=== PATIENT | female | born 1955 | race Caucasian/White ===

== ENCOUNTER 2018-06-19 10:17 | Observation (INO) | payer BC, SELFPAY ==
[2018-06-19] VITALS (15 sets, daily range): BP systolic 119–150; BP diastolic 64–88; PULSE 55–75; RESP 15–29; TEMP 36.5–37.1; O2SAT 95–100; BMI 32.2; BMI 32.3
--- NOTE | 2018-06-19 10:30 | EKG12_ITS ---
Test Reason : REPEAT Blood Pressure : / mmHG Vent. Rate : 071 BPM Atrial Rate : 071 BPM P-R Int : 158 ms QRS Dur : 084 ms QT Int : 410 ms P-R-T Axes : 046 -22 049 degrees QTc Int : 445 ms Normal sinus rhythm Normal ECG Confirmed by ELEUTERIO ZAVALA ([id number]), general expeditor MONICA GOMEZ ([id number] on 06/26/2018 2:16:27 PM Referred By: LUI Confirmed By:ELEUTERIO ZAVALA
--- NOTE | 2018-06-19 10:47 | EKG12_ITS ---
Test Reason : ADMIT W/C.P. Blood Pressure : / mmHG Vent. Rate : 058 BPM Atrial Rate : 058 BPM P-R Int : 154 ms QRS Dur : 084 ms QT Int : 444 ms P-R-T Axes : 026 -24 038 degrees QTc Int : 435 ms Sinus bradycardia Low voltage QRS Inferior infarct , age undetermined Abnormal ECG When compared with ECG of 19-JUN-2018 10:38, MANUAL COMPARISON REQUIRED, DATA IS UNCONFIRMED Confirmed by ELEUTERIO ZAVALA ([id number]), pictures editor MONICA GOMEZ ([id number]) on 06/26/2018 3:14:14 PM Referred By: DOMINGUEZ Confirmed By:ELEUTERIO ZAVALA
[2018-06-19 10:49] LABS: Absolute Lymphocyte Count 1.31 X10^3/ul (0.83-4.51); Absolute Neutrophil Count 1.8 X10^3/uL (2.0-7.7); Basophil# 0.02 X10^3/uL; Basophil% 0.5 % (0-1); Eosinophil# 0.31 X10^3/uL; Eosinophils% 7.8 % (0-5); Hematocrit 40.3 % (37-47); Hemoglobin 13.9 g/dl (12.0-15.0); Lymphocyte # 1.31 X10^3/ul (4.0); Lymphocyte % 32.8 % (19-41); Mean Corp Hgb Conc 34.5 g/gl (32-36); Mean Corpuscular Hgb 31.4 pg (27.0-32.0); Mean Platelet Vol. 9.6 fl (6.2-12.0); Monocyte# 0.51 X10^3/uL; Monocyte% 12.8 % (0-10); Neutrophil # 1.83 X10^3/uL (2.7-7.7); Neutrophil % 45.8 % (47-70); POSITIVE COUNT NO; POSITIVE DIFFERENTIAL NO; POSITIVE MORPHOLOGY NO; Platelet Count 185 K/mm3 (150-450); RBC Distribution Width CV 13.2 % (11.6-14.6); RBC Distribution Width SD 43.2 fl (35.1-43.9); Red Blood Count 4.43 M/mm3 (4.2-5.4)
[2018-06-19 11:02] LABS: AST(SGOT) 29 U/L (15-37); Alanine Aminotransfer ALT/SGPT 33 U/L (13-56); Albumin, Serum 3.5 g/dL (3.2-5.0); Alkaline Phosphatase 83 U/L (45-117); Anion Gap 15 (5-15); BUN 20 mg/dL (7-18); BUN/Creat Ratio 16.9 RATIO (10-20); Bilirubin, Direct 0.16 mg/dL (0.00-0.30); Calcium,Total 9.1 mg/dL (8.5-10.1); Chloride 105 mmol/L (98-107); Creatinine, Serum 1.18 mg/dL (0.55-1.02); EST Glomerular Filtration Rate 49 mL/min (>60); Est Glom Filt Rate - Afr Amer 59 mL/min (>60); Estimated Creatinine Clearance 39.32 ml/min; Globulin 3.9 g/dL (2.2-4.2); Glucose 102 mg/dL (74-106); Lipase 156 U/L (73-393); Potassium 3.3 mmol/L (3.5-5.1); Protein, Total 7.4 g/dL (6.4-8.2); Sodium Level 145 mmol/L (136-145)
[2018-06-19] MEDS: 0.9% Normal Saline 1,000 ML 150 ML IV (11:31)
[2018-06-19] MEDS: Ondansetron 4 MG/2 ML Vial IV (11:31)
[2018-06-19] MEDS: Morphine 4 MG/ML Syringe IV (11:31)
--- NOTE | 2018-06-19 11:47 | ED.VISSUMM ---
- ER Visit Summary Date of Service: 06/19/18 Chief Complaint: [Chest pain History of Present Illness: The patient is a 63 F [presents to the emergency department complaint of chest pain that started yesterday. Patient states the pain is been continuous. She describes it as left-sided. Patient had some numbness in her left arm. Patient feels somewhat short of breath with it. 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 Patient currently on Xarelto but states that her dose was lowered for a time to 10 mg and she had been on 20 mg. Patient denies recent travel or surgery. She has no coronary artery disease history otherwise. Patient does have a history of hypertension, high cholesterol, asthma, and PE.] Physical Examination: HEENT-PERRLA, EOMI. Cranial nerves II through XII grossly intact. TMs clear. Mucous membranes moist. No adenopathy. Cardiovascular-regular rate and rhythm without murmur or ectopy Lungs-clear to auscultation, chest wall stable without crepitus or subcu emphysema Abdomen-normoactive bowel sounds, soft, nontender, no rebound or rigidity, no peritoneal signs. Extremities-intact ?4, normal range of motion, normal pulses, atraumatic [] Test Results: [EKG obtained on arrival showed a sinus rhythm with a ventricular rate of 67 bpm with no acute significant ST changes noted. CBC with differential showing a 4.0, Hemoccult 13.9, hematocrit 40, platelets 185. Chemistries unremarkable. LFTs and lipase were normal. Troponin was less than 0.015. CTA of the chest was read by radiology as normal.] Emergency Department Course and Treatment: [Patient was given morphine and Zofran as well as nitroglycerin. She seemed to have some slight improvement with the nitroglycerin. Patient had an episode of pain while in the department that she describes as to hand squeezing her chest and the pain radiated into her jaw. Repeat EKG was unchanged from first EKG.] Treatment Plan: [Admit] Disposition: Admit] Impression: [Chest pain-rule out acute coronary syndrome] This note was generated with [employer] dictation software. It may contain incorrect words, spelling, and punctuation that were not noted in review of the chart prior to signing ED Disposition - Plan for ED Patient: Chief Complaint: Chest Pain Referrals: Care Physician,No Primary [Primary Care Provider] -
[2018-06-19] MEDS: Mag Hydrox/Al Hydrox/Simeth 30 ML UDC PO (12:04)
--- NOTE | 2018-06-19 12:16 | PCM.HP.STD ---
Problem List (1) Hyperlipidemia Status: Chronic (2) History of DVT (deep vein thrombosis) Status: Chronic (3) History of saddle pulmonary embolism Status: Chronic (4) Hypertension Status: Chronic History of Present Illness Date of Admission: 06/19/18 Chief Complaint: Chest pain. The patient is a 63 year old F with past medical history as mentioned above presented to the emergency department because of chest pain that started yesterday. Yesterday evening, she was sitting reading a book and she started having retrosternal chest pain, squeezing type pain, 9 out of 10 in severity, radiates to her neck, associated with mild shortness of breath and sweating and she was dizzy and without aggravating or relieving factors. The pain lasted around 1 hour and then started to ease up. She was hesitant to come to ED yesterday. Today, she started having that exact same pain and she decided to come to the emergency department. In the ED, her vital signs were stable but she was a little bit tachypneic probably due to anxiety. Her routine blood work is remarkable for potassium of 3.3, BUN of 20 and creatinine 1.18, otherwise normal. LFT and lipase were normal. Troponin was negative. EKG revealed normal sinus rhythm, normal WI interval, normal QRS and no evidence of acute ischemic changes or cardiac arrhythmias. Because of chest pain and history of PE, CTA chest done and revealed no evidence of PE or dissection. She is being admitted for chest pain for evaluation as well as hypokalemia and mild dehydration. Past Medical History Past Medical History (Chronic Problems): Chronic Problems Hyperlipidemia (Chronic) History of DVT (deep vein thrombosis) (Chronic) History of saddle pulmonary embolism (Chronic) Hypertension (Chronic) Allergies Latex, Natural Rubber Allergy (Verified 06/19/18 10:17) Rash Home Medications: Ambulatory Orders Medication Instructions Recorded Fluoxetine HCl 10 mg PO DAILY 06/19/18 Lisinopril/Hydrochlorothiazide 1 tablet PO DAILY 06/19/18 [Zestoretic 1012.5 Tablet] Pantoprazole Sodium [Protonix] 40 mg PO DAILY 06/19/18 Rivaroxaban [Xarelto] 20 mg PO DAILY 06/19/18 Surgical History: total knee arthroplasty Psychiatric History: Depression 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 Denies: Heaviness, Palpitations, Syncope Respiratory: Reports: Shortness of Breath. Denies: Cough, Hemoptysis, Pleuritic Pain, Sputum production, Wheezing Gastrointestinal: Denies: Abdominal Pain, Constipation, Diarrhea, Vomiting Genitourinary: Denies: Dysuria, Frequency, Hematuria Musculoskeletal: Denies: Arm Pain, Back Pain, Foot Pain Skin: Denies: Dryness, Rash Neurological: Denies: Balance problems, Double vision, Change in Speech, Slurred speech, Headaches, Incoordination, Numbness Psychiatric: Reports: Depression. Denies: Anxiety Endocrine: Denies: Change in Body Habitus, Polydipsia VTE Information - Inpt Only VTE Present on Admission: No VTE Mechan Device Prophylaxis: None VTE Pharm Prophylaxis ordered?: No - Physical Exam General: Alert, Oriented x3, Cooperative, - - Anxious. HEENT: Atraumatic, PERRLA, EOMI Oral: Moist Mucosa, No Gingival or Mucosal Lesions/ Ulcerations Neck: Supple, No JVD, Negative Carotid Bruits, Trachea Midline, Thyroid Normal Size and Texture Lungs: Clear to auscultation, No rhonchi, No wheeze, No rales, Diminished Cardiovascular: Regular rate, Regular Rhythm, Normal S1, Normal S2, No murmurs, PMI Normal Abdomen: Bowel Sounds Present, Soft, Non Tender, Non-Distended, No Hepato-splenomegaly Extremities: No clubbing, No cyanosis, No edema Skin: No rashes, No breakdown Lymphatic: No Cervical, Supraclavicular, or Inguinal Adenopathy Neurological: Cranial nerves II-XII grossly intact, Motor Exam 5/5 strength throughout Psych/Mental Status: Normal Affect, Appropriate, Alert and oriented to time, place, person, mood and affect Vital Signs Temp Pulse Resp BP Pulse Ox 98.1 F 61 25 H 132/67 H 98 06/19/18 10:18 06/19/18 11:56 06/19/18 11:56 06/19/18 11:56 06/19/18 11:56 Oxygen Flow Rate (L/min) 2 Oxygen Delivery Method Nasal Cannula Weight: 182 lb Body Mass Index (BMI) 32.2 Laboratory Tests Past 24 Hrs 06/19/18 06/19/18 10:20 10:20 WBC 4.0 L RBC 4.43 Hgb 13.9 Hct 40.3 MCV 91.0 MCH 31.4 MCHC 34.5 RDW 13.2 RDW Differential 43.2 Plt Count 185 MPV 9.6 Immature Gran % (Auto) 0.300 Neut % (Auto) 45.8 L Lymph % (Auto) 32.8 [place] % (Auto) 12.8 H Eos % (Auto) 7.8 H Baso % (Auto) 0.5 Absolute Neuts (auto) 1.8 L Absolute Lymphs (auto) 1.31 Total Counted Not Reportable Sodium 145 Potassium 3.3 L Chloride 105 Carbon Dioxide 25.0 Anion Gap 15 BUN 20 H Creatinine 1.18 H Estim Creat Clear Calc 39.32 Est GFR (MDRD) Af Amer 59 L Est GFR (MDRD) Non-Af 49 L BUN/Creatinine Ratio 16.9 Glucose 102 Calcium 9.1 Total Bilirubin 0.70 Direct Bilirubin 0.16 AST 29 ALT 33 Alkaline Phosphatase 83 Troponin I < 0.015 Total Protein 7.4 Albumin 3.5 Globulin 3.9 Lipase 156 Clinical Impression(s) from Imaging Studies Chest CTA 06/19/18 10:30 IMPRESSION: Normal CTA chest examination, without a demonstrated pulmonary embolism or arterial dissection. Electronically Signed: Benedicto Manzo MD at 11:37 EDT Tel [phone], Service support , Assessment/Plan This is a 63 years old female patient presented to the emergency department because of chest pain and she is being admitted for evaluation. #1 chest pain: Risk factors are age, history of hypertension and hyperlipidemia. Initial EKG revealed no acute ischemic changes. Troponin is negative. CTA chest showed no acute PE or dissection. Vital signs are stable. Plan: Admit to PCU for observation, cardiac monitoring, serial cardiac enzymes, repeat EKG tomorrow morning, IV fluids, IV antiemetics, IV morphine as needed for pain, nuclear stress test tomorrow morning if cardiac enzymes are negative. #2 mild dehydration/hypokalemia: Could be due to diuretics. Patient has been on HCTZ. Plan: IV fluids, p.o. K Dur, input output chart, repeat BMP tomorrow morning. #3 hypertension: Blood pressure stable, continue Zestoretic. #4 hyperlipidemia: She is not on statins. #5 history of saddle PE/history of DVT: CTA chest without PE or dissection. Plan to continue Xarelto. #6 DVT prophylaxis: Continue Xarelto. This note was generated with [employer] dictation software. It may contain incorrect words, spelling, and punctuation that were not noted in checking the note before signing. Code Visit OBSV E&M: 99587 Initial observation care L3
[2018-06-19] MEDS: LORazepam 0.5 MG Tablet PO (12:20)
[2018-06-19] MEDS: 0.9% Normal Saline 1,000 ML 75 ML IV (12:48)
--- NOTE | 2018-06-19 12:49 | EKG12_ITS ---
Test Reason : CP Blood Pressure : / mmHG Vent. Rate : 067 BPM Atrial Rate : 067 BPM P-R Int : 148 ms QRS Dur : 082 ms QT Int : 412 ms P-R-T Axes : 034 -34 046 degrees QTc Int : 435 ms Normal sinus rhythm Left axis deviation Nonspecific ST abnormality Abnormal ECG Confirmed by ELEUTERIO ZAVALA ([id number]), society editor MONICA GOMEZ ([id number]) on 06/26/2018 2:15:57 PM Referred By: Confirmed By:ELEUTERIO ZAVALA
[2018-06-19] MEDS: 0.9% NaCl Peripheral Flush Adult/Peds IV (20:20)
[2018-06-20] VITALS (7 sets, daily range): BP systolic 111–131; BP diastolic 69–79; PULSE 63–86; RESP 15–18; TEMP 36.5–37.3; O2SAT 95–98
[2018-06-20] MEDS: Lisinopril 10 MG Tablet PO (05:18)
[2018-06-20] MEDS: Aspirin E.C. 81 MG Tablet PO (05:19)
[2018-06-20] MEDS: 0.9% NaCl Peripheral Flush Adult/Peds IV (05:19)
--- NOTE | 2018-06-20 05:55 | EKG12_ITS ---
Test Reason : AM EKF Blood Pressure : / mmHG Vent. Rate : 058 BPM Atrial Rate : 058 BPM P-R Int : 154 ms QRS Dur : 084 ms QT Int : 424 ms P-R-T Axes : 056 049 060 degrees QTc Int : 416 ms Sinus bradycardia Otherwise normal ECG When compared with ECG of 19-JUN-2018 14:37, MANUAL COMPARISON REQUIRED, DATA IS UNCONFIRMED Confirmed by ELEUTERIO ZAVALA ([id number]), book or script editor MONICA GOMEZ ([id number]) on 06/26/2018 3:15:57 PM Referred By: DOMINGUEZ Confirmed By:ELEUTERIO ZAVALA
[2018-06-20 06:48] LABS: Absolute Lymphocyte Count 1.01 X10^3/ul (0.83-4.51); Absolute Neutrophil Count 1.6 X10^3/uL (2.0-7.7); Basophil# 0.04 X10^3/uL; Basophil% 1.2 % (0-1); Eosinophil# 0.42 X10^3/uL; Eosinophils% 12.2 % (0-5); Hematocrit 37.3 % (37-47); Hemoglobin 12.3 g/dl (12.0-15.0); Lymphocyte # 1.01 X10^3/ul (4.0); Lymphocyte % 29.4 % (19-41); Mean Corpuscular Hgb 30.6 pg (27.0-32.0); Mean Corpuscular Volume 92.8 fL (81-99); Mean Platelet Vol. 9.4 fl (6.2-12.0); Monocyte# 0.34 X10^3/uL; Monocyte% 9.9 % (0-10); Neutrophil # 1.62 X10^3/uL (2.7-7.7); Neutrophil % 47.3 % (47-70); Platelet Count 149 K/mm3 (150-450); RBC Distribution Width CV 13.3 % (11.6-14.6); RBC Distribution Width SD 44.1 fl (35.1-43.9); Red Blood Count 4.02 M/mm3 (4.2-5.4); White Blood Count 3.4 K/mm3 (4.4-11.0)
[2018-06-20 06:50] LABS: POSITIVE COUNT NO; POSITIVE DIFFERENTIAL NO; POSITIVE MORPHOLOGY NO
[2018-06-20 07:04] LABS: Anion Gap 9 (5-15); BUN 13 mg/dL (7-18); BUN/Creat Ratio 14.6 RATIO (10-20); Calcium,Total 8.6 mg/dL (8.5-10.1); Chloride 109 mmol/L (98-107); Creatinine, Serum 0.89 mg/dL (0.55-1.02); EST Glomerular Filtration Rate 68 mL/min (>60); Est Glom Filt Rate - Afr Amer 82 mL/min (>60); Estimated Creatinine Clearance 52.13 ml/min; Glucose 98 mg/dL (74-106); Potassium 4.3 mmol/L (3.5-5.1); Sodium Level 145 mmol/L (136-145)
[2018-06-20] MEDS: HYDROCHLOROTHIAZIDE 12.5 MG CAPSULE PO (09:19)
[2018-06-20] MEDS: FLUoxetine 10 MG Capsule PO (09:19)
[2018-06-20] MEDS: Pantoprazole Sodium 40 MG Tablet PO (09:19)
[2018-06-20 09:32] LABS: International Normalized Ratio 1.1; Prothrombin Time (Protime)PT. 14.4 SECONDS (11.7-14.9)
[2018-06-20 09:33] LABS: Partial Thromboplast Time 30.2 Seconds (24.1-36.2)
--- NOTE | 2018-06-20 11:14 | STRESSREP ---
Stress Test Report Date: 06/20/2018 Procedure: Exercise tolerance test/imaging study Indications: Chest pain Consent: Per the patient Procedure: The patient exercised on a Erick protocol for 5 minutes completing Stage I and 2 minutes of Stage II achieving a peak heart rate of 136 bpm (87 % predicted maximal heart rate) with a peak blood pressure 182/80 mmHg and a peak MET capacity of 7 METs. The baseline ECG demonstrated normal sinus rhythm with an incomplete right bundle branch block pattern. The peak exercise ECG demonstrated sinus rhythm with a right bundle branch block pattern. There were no cardiac dysrhythmias pretest, during exercise, or recovery. The functional capacity was considered average. There was no complaint of chest discomfort during exercise or recovery. The examination was discontinued secondary to dyspnea. Impression: 1. Technically adequate (percent predicted maximal heart rate greater than 85%) exercise tolerance test 2. Peak exercise ECG demonstrated a right bundle branch block pattern appearing compatible with a rate related IVCD. 3. There were no cardiac dysrhythmias pretest, during exercise, or recovery. 4. Nuclear images pending Myocardial perfusion imaging study: Technique: The patient was injected with 11.8 mCi of technetium 99m Cardiolite and subsequently rest SPECT Cardiolite nuclear imaging was obtained in the horizontal long, vertical long, and short axis views. The patient exercised on a Erick protocol for 5 minutes completing Stage I and 2 minutes of Stage II achieving a peak heart rate of 136 bpm (87 % predicted maximal heart rate) with a peak blood pressure 182/80 mmHg and a peak MET capacity of 7 METs. The patient was injected with 35.4 mCi of technetium 99m Cardiolite and subsequently stress SPECT Cardiolite nuclear imaging was obtained in the horizontal long, vertical long, and short axis views. A gated Cardiolite study at peak stress was obtained. Interpretation: Rest and stress SPECT Cardiolite nuclear imaging status post realignment, normalization, and attenuation correction, demonstrates the appearance of relative uniform tracer uptake and myocardial perfusion appearing within normal limits. There is end systolic thickening and brightening. The gated Cardiolite study demonstrates myocardial thickening and inward wall motion. The reported LVEF is 83 %. Impression: 1. Rest and stress SPECT Cardiolite nuclear imaging demonstrate relative uniform tracer uptake and myocardial perfusion appearing within normal limits. 2. The gated Cardiolite study reports an LVEF of 83 %. This note was generated with [employer] software. It may contain incorrect words, spelling, and punctuation that were not noted in checking the note before signing.
--- NOTE | 2018-06-20 11:18 | STRESSREP_ITS ---
Stress Test Report Date: 06/20/2018 Procedure: Exercise tolerance test/imaging study Indications: Chest pain Consent: Per the patient Procedure: The patient exercised on a Erick protocol for 5 minutes completing Stage I and 2 minutes of Stage II achieving a peak heart rate of 136 bpm (87 % predicted maximal heart rate) with a peak blood pressure 182/80 mmHg and a peak MET capacity of 7 METs. The baseline ECG demonstrated normal sinus rhythm with an incomplete right bundle branch block pattern. The peak exercise ECG demonstrated sinus rhythm with a right bundle branch block pattern. There were no cardiac dysrhythmias pretest, during exercise, or recovery. The functional capacity was considered average. There was no complaint of chest discomfort during exercise or recovery. The examination was discontinued secondary to dyspnea. Impression: 1. Technically adequate (percent predicted maximal heart rate greater than 85% ) exercise tolerance test 2. Peak exercise ECG demonstrated a right bundle branch block pattern appearing compatible with a rate related IVCD. 3. There were no cardiac dysrhythmias pretest, during exercise, or recovery. 4. Nuclear images pending Myocardial perfusion imaging study: Technique: The patient was injected with 11.8 mCi of technetium 99m Cardiolite and subsequently rest SPECT Cardiolite nuclear imaging was obtained in the horizontal long, vertical long, and short axis views. The patient exercised on a Erick protocol for 5 minutes completing Stage I and 2 minutes of Stage II achieving a peak heart rate of 136 bpm (87 % predicted maximal heart rate) with a peak blood pressure 182/80 mmHg and a peak MET capacity of 7 METs. The patient was injected with 35.4 mCi of technetium 99m Cardiolite and subsequently stress SPECT Cardiolite nuclear imaging was obtained in the horizontal long, vertical long, and short axis views. A gated Cardiolite study at peak stress was obtained. Interpretation: Rest and stress SPECT Cardiolite nuclear imaging status post realignment, normalization, and attenuation correction, demonstrates the appearance of relative uniform tracer uptake and myocardial perfusion appearing within normal limits. There is end systolic thickening and brightening. The gated Cardiolite study demonstrates myocardial thickening and inward wall motion. The reported LVEF is 83 %. Impression: 1. Rest and stress SPECT Cardiolite nuclear imaging demonstrate relative uniform tracer uptake and myocardial perfusion appearing within normal limits. 2. The gated Cardiolite study reports an LVEF of 83 %. This note was generated with [employer] software. It may contain incorrect words, spelling, and punctuation that were not noted in checking the note before signing.
[2018-06-20] MEDS: Rivaroxaban 20 MG Tablet PO (12:34)
--- NOTE | 2018-06-20 13:21 | PCM.DC ---
- Discharge Diagnoses Current Active Problems: Current Active and Chronic Problems Hyperlipidemia (Chronic) History of DVT (deep vein thrombosis) (Chronic) History of saddle pulmonary embolism (Chronic) Hypertension (Chronic) Reason(s) for Visit for Discharge Instructions: chest pain You will use the following diet at home:: Cardiac Your food should be the consistency of: Regular Your liquids should be the consistency of: Regular/Thin Discharge Activity: Return to Normal Activity Additional Instructions: Continue to take all your medications. Follow-up with your PCP for repeat blood work and general follow-up in 1 week. Continue to remain active by exercising moderately at least 30 mins daily. Allergies/Adverse Reactions: Allergies Latex, Natural Rubber Allergy (Verified 06/19/18 10:17) Rash Medications to take at Discharge Cholecalciferol (Vitamin D3) [Vitamin D3] 5,000 unit PO DAILY 06/19/18 Fluoxetine HCl 10 mg PO DAILY 06/19/18 Folic Acid 3.8 mg PO DAILY@0800 06/19/18 Lisinopril/Hydrochlorothiazide [Zestoretic 10/12.5 Tablet] 1 tablet PO DAILY 06/19/18 Pantoprazole Sodium [Protonix] 40 mg PO DAILY 06/19/18 Rivaroxaban [Xarelto] 20 mg PO DAILY 06/19/18 Primary Care Physician: Care Physician,No Primary [Primary Care Provider] - Please follow up with your Primary Care Physician in: within 2 weeks Test Results: Test results from this visit will be discussed in further detail at your follow-up appointment, if applicable. Proposed Discharge Date: 06/20/18
--- NOTE | 2018-06-20 13:28 | PCM.DC.SUM ---
Discharge Date and Diagnosis Date of Admission: 06/19/18 Date of Discharge: 06/20/18 - Primary Discharge Diagnosis Chest pain Hypokalemia ALFREDO Leukopenia - Secondary Discharge Diagnosis Chronic Problems Hyperlipidemia (Chronic) History of DVT (deep vein thrombosis) (Chronic) History of saddle pulmonary embolism (Chronic) Hypertension (Chronic) Hospital Course and Treatment Imaging Results: 06/20/18 05:55 Nuclear Stress Test - Treadmil [NM] Routine None Operations: None Procedures: None Summary of Care Provided: The patient is a 63 year old F with past medical history of hypertension, hyperlipidemia, chronic DVT with history of saddle embolism who was admitted with chest pain that started a day before admission. Patient experienced retrosternal chest pain while sitting down reading a book, described as squeezing, 9 out of 10 radiated to her neck associated with dizziness. Pain lasted for 1 hour then started to ease up. She came to the ED and had admitting blood work was significant for potassium of 3.3, BUN of 20, creatinine 1.18. Troponins were negative. EKG showed no acute ST-T changes. Her other blood work was negative. Patient had CT of the chest done that showed no evidence of PE or dissection. She was admitted to a monitored bed, with telemetry. Her potassium was replaced. She was given IV fluids with improvement in her kidney function. Patient underwent stress test the next day which was negative. Her repeat blood work the next day showed leukopenia with WBC count of 3.4, decreased from 4.0. Potassium was normal. Patient was asked to follow-up with her primary doctor and repeat blood work in a week. Discharge Diet: No Restrictions Discharge Activity: Return to Normal Activity Home Medications: Medications to take at Discharge Cholecalciferol (Vitamin D3) [Vitamin D3] 5,000 unit PO DAILY 06/19/18 Fluoxetine HCl 10 mg PO DAILY 06/19/18 Folic Acid 3.8 mg PO DAILY@0800 06/19/18 Lisinopril/Hydrochlorothiazide [Zestoretic 10/12.5 Tablet] 1 tablet PO DAILY 06/19/18 Pantoprazole Sodium [Protonix] 40 mg PO DAILY 06/19/18 Rivaroxaban [Xarelto] 20 mg PO DAILY 06/19/18 Primary Care Physician: Care Physician,No Primary [Primary Care Provider] - Please follow up with your Primary Care Physician in: within 2 weeks Disposition: Home Minutes spent on discharge:: 40 Patient Condition:: Stable Medical Necessity - Tobacco Use Smoking Status: Former smoker Meaningful Use Info Meaningful Use Diagnoses (Choose all that apply): None applicable Code Visit OBSV E&M: 61173 Observation care discharge
== END 2018-06-20 13:52 | disposition home or self-care (01) ==
LOC: ED 10:45 → PCU 12:12
PROVIDERS: Admitting Provider Hospitalist; Emergency Provider Emergency Medicine; Visit Provider Internal Medicine
DX: R07.89 Other chest pain (principal); R06.02 Shortness of breath; R20.0 Anesthesia of skin; Z86.711 Personal history of pulmonary embolism; I10 Essential (primary) hypertension; J45.909 Unspecified asthma, uncomplicated; Z79.899 Other long term (current) drug therapy; Z79.01 Long term (current) use of anticoagulants; Z86.718 Personal history of other venous thrombosis and embolism; E78.5 Hyperlipidemia, unspecified; R42 Dizziness and giddiness; E87.6 Hypokalemia; E86.0 Dehydration; N17.9 Acute kidney failure, unspecified; D72.819 Decreased white blood cell count, unspecified; Z87.891 Personal history of nicotine dependence
CPT/HCPCS: 36415; 71275; 78452; 80048; 80076; 83690; 84484; 85025; 85610; 85730; 93005; 93017; 96361; 96374; 96375; 99218; 99285; A9500; J7030; Q9967; A4216; G0378; J2405; J2785

== ENCOUNTER 2024-09-26 07:55 | Day surgery (SDC) | payer MEDICARE, BC, SELFPAY ==
[2024-09-23 12:18] LABS: Anion Gap 3 (5-15); BUN 16 mg/dL (7-18); BUN/Creat Ratio 19.4 RATIO (10-20); Calcium,Total 9.4 mg/dL (8.5-10.1); Chloride 105 mmol/L (98-107); Creatinine, Serum 0.82 mg/dL (0.55-1.02); EST Glomerular Filtration Rate 73 mL/min (>60); Est Glom Filt Rate - Afr Amer 88 mL/min (>60); Glucose 94 mg/dL (74-106); Sodium Level 139 mmol/L (136-145)
[2024-09-25 03:16] LABS: ALB/GLOB Ratio 0.9 RATIO (0.9-2.4); AST(SGOT) 23 U/L (15-37); Alanine Aminotransfer ALT/SGPT 25 U/L (13-56); Albumin, Serum 3.5 g/dL (3.2-5.0); Alkaline Phosphatase 58 U/L (45-117); Globulin 3.7 g/dL (2.2-4.2); Protein, Total 7.2 g/dL (6.4-8.2)
[2024-09-26] VITALS (9 sets, daily range): BP systolic 119–142; BP diastolic 72–82; PULSE 59–80; RESP 16; TEMP 36.3–37; O2SAT 93–99; BMI 34.3
[2024-09-26 08:15] LABS: Hemoglobin 13.4 g/dL (12.0-15.0); Mean Corp Hgb Conc 32.7 g/dL (32-36); Mean Corpuscular Hgb 30.9 pg (27.0-32.0); Mean Corpuscular Volume 94.5 fL (81-99); Mean Platelet Vol. 9.2 fl (6.2-12.0); Platelet Count 172 K/mm3 (150-450); RBC Distribution Width CV 12.9 % (11.6-14.6); RBC Distribution Width SD 44.4 fl (35.1-43.9); Red Blood Count 4.34 M/mm3 (4.2-5.4); White Blood Count 3.4 K/mm3 (4.4-11.0)
--- NOTE | 2024-09-26 08:41 | PCM.PRE.AN2 ---
ASA Classification* ASA Classification ASA Classification: 2 Assessment & Plan Anesthesia* Anesthesia Assessment Anesthesia Assessment: Discussed sedation and/or anesthesia options, risks, benefits, and alternatives with patient/parents/legal guardian/POA. Questions invited. The patient/parents/legal guardian/POA seems to understand and agrees to proceed with anesthesia plan. Reviewed the physical assessment, medical history, allergy history and patient home medications list prior to surgery/procedure/anesthetic and documented any changes. Performed airway and anesthesia risk assessments. Anesthesia Type Anesthesia Type: General Anesthesia Focused Assessment* Temperature: 97.6 F Pulse Rate: 73 Blood Pressure: 137/79 Respiratory Rate: 16 Pulse Ox: 99 Airway Assessment Mouth opens: >3 cm Mallampati Score: II Focused Labs Anesthesia Preop lab: CBC WBC 3.4 K/mm3 (4.4-11.0) L 09/26/24 08:09 RBC 4.34 M/mm3 (4.2-5.4) 09/26/24 08:09 Hgb 13.4 g/dL (12.0-15.0) 09/26/24 08:09 Hct 41.0 % (37-47) 09/26/24 08:09 Plt Count 172 K/mm3 (150-450) 09/26/24 08:09 CHEMISTRY Potassium 4.0 mmol/L (3.5-5.1) 09/23/24 11:32 Sodium 139 mmol/L (136-145) 09/23/24 11:32 BUN 16 mg/dL (7-18) 09/23/24 11:32 Creatinine 0.82 mg/dL (0.55-1.02) 09/23/24 11:32 Glucose 94 mg/dL (74-106) 09/23/24 11:32 COAG PT 14.4 SECONDS (11.7-14.9) 06/20/18 09:00 Pre-Assessment Diagnosis/Proposed Procedure Planned Operative Procedure(s): Cystoscopy, uretheral dialation Anesthesia History 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 When Was Last Pacemaker Check QUESTION #4 FULL TEXT: You/Your Family Experience fever (hyperthermia) with Anesthesia Last Oral Intake Last Oral intake: Last Oral Intake NPO since 23:30 09/26/24 08:06 Meds taken in AM with sips of No 09/26/24 08:06 water? Meds patient instructed to take am of surgery PONV PONV - certified shorthand reporter: PONV - certified shorthand reporter Female Yes 09/20/24 15:14 HX of Motion Sickness No 09/20/24 15:14 HX of N/V After Surgery No 09/20/24 15:14 Non-Smoker Yes 09/20/24 15:14 Duration of Surgery greater No 09/20/24 15:14 than 60 minutes Number of Risk Factors 2 09/20/24 15:14 PONV Score Moderate Risk 09/20/24 15:14 Height & Weight Height & Weight: Anesthesia: Height & Weight Height 5 ft 3 in 09/26/24 08:06 Weight: 88 kg 09/26/24 08:06 Body Mass Index (BMI) 34.3 09/26/24 08:06 Respiratory Assessment Respiratory Assessment - certified shorthand reporter: Respiratory Tract Infection Hx - certified shorthand reporter Hx Respiratory Tract Infection No 09/20/24 15:14 STOP Sleep Apnea STOP Sleep Apnea - certified shorthand reporter: STOP Sleep Apnea - certified shorthand reporter Hx Hypertension Yes: CONTROLLED WITH MED 09/20/24 15:14 Hx Sleep Apnea No 09/20/24 15:14 CPAP BIPAP Do you snore loudly (louder No 09/20/24 15:14 than talking or can be heard Do you often feel tired/ No 09/20/24 15:14 fatigued/ sleepy during daytime? Has anyone observed you stop No 09/20/24 15:14 breathing during sleep? STOP Results Negative 09/20/24 15:14 QUESTION #5 FULL TEXT : Do you snore loudly (louder than talking or can be heard through closed doors)? 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 Specify any problems Hx of Preganancy in last 3 N/A 09/20/24 15:14 Months Nurse Filling Out Transfusion NBUCHER 09/20/24 15:14 & Questions: Date: 09/20/24 09/20/24 15:14 Time: 15:16 09/20/24 15:14 Patient unable to answer at this time (ie. confused, unrespo /Reproduction History /Reproductive History - certified shorthand reporter: /Reproductive Hx- certified shorthand reporter Hx Now Gestational Age (in weeks): EDC: Hx Hx Para Hx Section SAB Active Medications Active Medications: Current Medications Generic Name Dose Route Start Last Admin Trade Name Freq PRN Reason Stop Dose Admin Cefazolin Sodium 2 gm/ N/A 20 mls @ 400 mls/hr 09/26/24 09:25 IV 09/26/24 09:27 PREOP ONE [facility] Medical History Wears hearing aid Loss of hearing Wears glasses Arthritis High cholesterol DVT (deep venous thrombosis) Asthma Former smoker History of stress test (~2017) History of Espinosa's esophagus Home Medications ?Medication ?Instructions ?Recorded ?Last Taken ?Type cholecalciferol (vitamin D3) 125 5,000 unit PO DAILY 06/19/18 09/25/24 History mcg (5,000 unit) disintegrating tablet lisinopril 10 1 tab PO DAILY 06/19/18 09/25/24 History mg-hydrochlorothiazide 12.5 mg tablet (Zestoretic) pantoprazole 40 mg tablet,delayed 40 mg PO DAILY 06/19/18 09/25/24 History release rivaroxaban 20 mg tablet (Xarelto) 10 mg PO DAILY 06/19/18 09/25/24 History alendronate 70 mg tablet (Fosamax) 70 mg PO QWEEK 09/20/24 09/20/24 History ascorbic acid (vitamin C) 500 mg 500 mg PO DAILY 09/20/24 09/25/24 History chewable tablet (Acerola C) levomefolate calcium 7.5 mg tablet 7.5 mg PO DAILY 09/20/24 09/25/24 History rosuvastatin 5 mg tablet (Crestor) 5 mg PO MOWEFR 09/20/24 09/25/24 History Allergy/AdvReac Type Severity Reaction Status Date / Time oxycodone Allergy Unknown Other Verified 09/26/24 08:05 Latex, Natural Rubber Allergy Rash Verified 09/26/24 08:05 Surgical History History of esophagogastroduodenoscopy (EGD) History of colonoscopy History of rotator cuff surgery (~2004) History of breast biopsy (~1989) History of hysterectomy (~1984) History of bilateral knee replacement (~1999) History of spinal fusion (~2021) Social History Smoking Status: Former smoker Review of Systems (Anesthesia) ROS Narrative System reviewed and no additional complaints, except as documented.
--- NOTE | 2024-09-26 09:45 | PCM.POST.ANE ---
Anesthesia: Postop Eval I Current Vital Signs Temperature: 97.4 F Pulse Rate: 80 Blood Pressure: 119/72 Respiratory Rate: 16 Pulse Ox: 94 Oxygen Delivery Method: Nasal Cannula Oxygen Flow Rate (L/min): 2 Assessment Airway patent: Yes Spontaneous unlabored respirations: Yes Mental status: Awake and Calm nausea: No Vomiting: No Anesthesia Complication: No Fluid Hydration Crystalloid volume administer (ml): 10 Total IV fluid infused: 10 Progress Note Anesthesia document: Postop Eval 1 completed: Yes
--- NOTE | 2024-09-26 11:05 | POSTOPAN2_ITS ---
Anesthesia Postop Eval I Sum Postop Eval Completion status Anesthesia document: Postop Eval 1 completed: Yes Anesthesia Postop Eval I Summary Anesthesia Postop Eval I Summary: Anesthesia Postop Eval I: Assessment Summary Airway patent Yes 09/26/24 09:46 GROUP PROGRAM MANAGER.[email or web address] Spontaneous unlabored Yes 09/26/24 09:46 GROUP PROGRAM MANAGER.[email or web address] respirations Mental status Awake,Calm 09/26/24 09:46 GROUP PROGRAM MANAGER.[email or web address] nausea No 09/26/24 09:46 GROUP PROGRAM MANAGER.[email or web address] Vomiting No 09/26/24 09:46 GROUP PROGRAM MANAGER.[email or web address] Anesthesia Postop Eval I: Fluid Summary Crystalloid volume administer 10 09/26/24 09:46 GROUP PROGRAM MANAGER.[email or web address] (ml) Colloids volume administered ( ml) Blood Product volume administered (ml) Total IV fluid infused 10 09/26/24 09:46 GROUP PROGRAM MANAGER.[email or web address] Anesthesia Postop Eval I: Summary Notes Anesthesia Complication No 09/26/24 09:46 GROUP PROGRAM MANAGER.[email or web address] Anesthesia Complication Comment: Post-operative progress note Anesthesia: Postop Eval II Evaluation Mental status: Awake Pain Level: 0 nausea: No Vomiting: No
--- NOTE | 2024-09-26 11:05 | PCM.POSTANE2 ---
Anesthesia Postop Eval I Sum Postop Eval Completion status Anesthesia document: Postop Eval 1 completed: Yes Anesthesia Postop Eval I Summary Anesthesia Postop Eval I Summary: Anesthesia Postop Eval I: Assessment Summary Airway patent Yes 09/26/24 09:46 CHIEF PETROLEUM ENGINEER.[email or web address] Spontaneous unlabored Yes 09/26/24 09:46 CHIEF PETROLEUM ENGINEER.[email or web address] respirations Mental status Awake,Calm 09/26/24 09:46 CHIEF PETROLEUM ENGINEER.GDOTT nausea No 09/26/24 09:46 CHIEF PETROLEUM ENGINEER.GDOTT Vomiting No 09/26/24 09:46 CHIEF PETROLEUM ENGINEER.GDOTT Anesthesia Postop Eval I: Fluid Summary Crystalloid volume administer 10 09/26/24 09:46 CHIEF PETROLEUM ENGINEER.GDOTT (ml) Colloids volume administered ( ml) Blood Product volume administered (ml) Total IV fluid infused 10 09/26/24 09:46 CHIEF PETROLEUM ENGINEER.GDOTT Anesthesia Postop Eval I: Summary Notes Anesthesia Complication No 09/26/24 09:46 CHIEF PETROLEUM ENGINEER.GDOTT Anesthesia Complication Comment: Post-operative progress note Anesthesia: Postop Eval II Evaluation Mental status: Awake Pain Level: 0 nausea: No Vomiting: No
--- NOTE | 2024-09-26 11:21 | EX.PCM.DISCH ---
Discharge Instructions Diet Discharge Diet: No restrictions Activity Discharge Activity: Return to Normal Activity Dressing / Incision Call your doctor if you observe: Fever of 101 or Higher, Inability to urinate and Inability to have a bowel movement Follow Up Care Please Follow Up With: Mary Ann Ferguson MD When: The office will call to make follow up arrangements. Test Results: Test results from this visit will be discussed in further detail at your follow-up appointment, if applicable. Discharge Plan Admission Attending Provider: Mary Ann Ferguson Primary Care Provider: Sanket Pulliam Instructions Print Language: Tanzanian Discharge Orders/Prescriptions Prescriptions: Continued pantoprazole 40 MG tablet 40 mg PO DAILY lisinopril-hydrochlorothiazide [Zestoretic] 1 TABLET tablet 1 tab PO DAILY Xarelto 20 tablet 10 mg PO DAILY Patient Comments: cholecalciferol (vitamin D3) 5,000 UNIT tablet,disintegrating 5,000 unit PO DAILY levomefolate calcium 7.5 mg tablet 7.5 mg PO DAILY ascorbic acid (vitamin C) [Acerola C] 500 mg tablet,chewable 500 mg PO DAILY rosuvastatin [Crestor] 5 mg tablet 5 mg PO MOWEFR alendronate [Fosamax] 70 mg tablet 70 mg PO QWEEK Referrals / Follow Up: Sanket Pulliam MD [Primary Care Provider] - Disposition Disposition (needs filled in before D/C Order can be placed): Home, Self Care
--- NOTE | 2024-09-26 11:58 | PCM.OPRPT ---
Operative Report (Standard) Operative Information Date of Procedure: 09/26/24 Pre-Operative Diagnosis: Urethral stricture, mixed urinary incontinence Post-Operative Diagnosis: Same Surgery/Procedure Performed: Urethral dilation, cystoscopy brush fabrication supervisor: No Type of Anesthesia: MAC RN Documented Start/Stop Times: Operation Date: 09/26/24 09:25 Case Time Into Pre-Op 09/26/24 07:57 Out of Pre-Op 09/26/24 09:17 Anesthesia Start 09/26/24 09:19 Into Room 09/26/24 09:19 Procedure Start 09/26/24 09:33 Procedure End 09/26/24 09:36 Anesthesia End 09/26/24 09:42 Out of Room 09/26/24 09:42 Into Recovery 09/26/24 09:45 Out of Recovery 09/26/24 10:15 Into Phase II Recovery 09/26/24 10:17 Out of Phase II 09/26/24 11:56 Procedure Start Time: 09:33 Procedure Stop Time: 09:36 Select all DRAINS/GRAFTS/IMPLANTS that apply: None Estimated Blood Loss: <5cc Specimen collected: No Description of surgery: The patient is a 69-year-old female who had a Guevara procedure performed previously. She presented to the office with recurrence of her incontinence. On attempt of cystoscopy in the office it was determined that her urethral meatus was strictured. She now presents for urethral dilation and cystoscopy under anesthesia. Informed consent was obtained. She was taken to the operating room and placed on the operating room table. Anesthesia monitored the head, neck, airway, IV access and vital signs throughout the case. Once anesthesia was appropriately administered, she was placed into dorsolithotomy position and was prepped and draped in usual sterile fashion. The urethra was systematically dilated from 14 Mexican to 26 Mexican with cracking of the mucosa. The cystoscope then passed easily through the urethra under direct visualization into the urinary bladder. Once in the bladder the mucosa was visualized in its entirety revealing no evidence of mass, erythema, ulceration or foreign body. The ureteral orifices appeared to be in the correct anatomic position. At this time the patient's bladder was emptied and the cystoscope was removed. She was awakened and taken to the recovery room in good condition. There were no complications during the procedure. Surgical Findings: Urethral stricture, normal cystoscopy Complications Complications: No Admit VTE Documentation VTE Present on Admission: Yes VTE Mechan Device Prophylaxis: SCD's VTE Pharm Prophylaxis ordered?: Yes
== END 2024-09-26 11:56 | disposition home or self-care (01) ==
LOC: SDC 07:56 → AC 07:56
PROVIDERS: PCP Family Medicine; Referring Provider Urology; Visit Provider Urology
PROC: 0T7D8ZZ Dilation of Urethra, Via Natural or Artificial Opening Endoscopic (ICD-10-PCS; CPT 52281; principal; 2024-09-26 09:15)
DX: N35.92 Unspecified urethral stricture, female (principal); I10 Essential (primary) hypertension; K21.9 Gastro-esophageal reflux disease without esophagitis; N39.3 Stress incontinence (female) (male); N39.41 Urge incontinence; N95.2 Postmenopausal atrophic vaginitis; N94.12 Deep dyspareunia; E78.00 Pure hypercholesterolemia, unspecified; Z87.891 Personal history of nicotine dependence; Z86.711 Personal history of pulmonary embolism; Z79.01 Long term (current) use of anticoagulants; Z79.899 Other long term (current) drug therapy
CPT/HCPCS: 52281; 00910; 36415; 80048; 82040; 82247; 84075; 84155; 84450; 84460; 85027; A4216; J2405